=== PATIENT | female | born 1945 | race Caucasian/White ===

== ENCOUNTER → 2017-03-14 | Outpatient (CLI) | payer MEDICARE, BC | LOC: GMAB 16:44 | PROVIDERS: ATTEND Family Medicine | DX: R30.0 Dysuria (principal) ==

== ENCOUNTER → 2017-03-23 | Outpatient (CLI) | payer MEDICARE, BC | END | disposition home or self-care (01) | LOC: GMAB 10:23 | PROVIDERS: ATTEND Family Medicine | DX: I10 Essential (primary) hypertension (principal) ==

== ENCOUNTER → 2017-05-05 | Outpatient (CLI) | payer MEDICARE, BC ==
--- NOTE | 2017-05-06 12:53 | MAM ---
EXAM DESCRIPTION: 3D Screening BILATERAL : Digital Mammography. CLINICAL HISTORY: 72 years Female SCREENING . No complaints. No family history of breast cancer. Hysterectomy. No HRT. COMPARISON: 2-D digital screening bilateral study 05/31/2011.. No prior reports available. TECHNIQUE: Bilateral CC and MLO projection full-field images, 3-D tomosynthesis digital mammographic technique. Also bilateral synthesized CC/ MLO full-field images. CAD not utilized. FINDINGS: The breast parenchymal density pattern is: Scattered areas of fibroglandular density. No skin thickening or nipple retraction bilateral solitary microcalcifications. Bilateral intramammary lymph nodes. Bilateral vascular calcifications. Focal asymmetry at the 1200-12:30 clock position of the posterior third of the left breast, approximately 9 cm from the nipple. Not well seen on the prior study. Greater density than the surrounding soft tissues, similar to fibroglandular tissues. Not associated with microcalcifications. No focal, stellate mass or density, focal asymmetry , and no suspicious microcalcifications right breast. Stable mammograms compared to prior study, taking into account differences in mammographic technique IMPRESSION: BI-RADS CATEGORY: 0 - INCOMPLETE- Need additional imaging evaluation. FOLLOW-UP: Recall for additional imaging: Digital 3-D tomosynthesis left breast LM full-field image. Followed by targeted left breast ultrasound region of interest.. Written communication concerning the IMPRESSION and Follow-up, will be mailed to the patient and referring health care provider. Electronically signed by: Estevan Phillips MD 05/06/2017 12:51 PM AUTOMOTIVE SERVICE TECHNICIAN
== END | disposition home or self-care (01) ==
LOC: MAMMO 10:14
PROVIDERS: ATTEND Family Medicine
DX: Z12.31 Encounter for screening mammogram for malignant neoplasm of breast (principal)
CPT/HCPCS: 77063; G0202

== ENCOUNTER → 2017-05-18 | Outpatient (CLI) | payer MEDICARE, BC ==
--- NOTE | 2017-05-19 16:08 | MAM ---
EXAM DESCRIPTION: Diagnostic Mammo,Left CLINICAL HISTORY: 72 yearsFemaleABNORMAL MAMMO. No complaints. No family history of breast cancer. Focal asymmetry 12 8192-8235 clock position posterior third left breast. COMPARISON: 3-D digital screening bilateral tomosynthesis study 05/05/2017. Targeted left breast ultrasound following this examination. TECHNIQUE: 2-D digital left breast LM image. CAD was utilized. FINDINGS: Small oval-shaped mass density with central radiolucency at the 200 clock position of the left breast, approximately 8.8 cm from the nipple. Well-circumscribed borders. Dimensions approximately 5.0 x 3.6 mm. More dense than the surrounding fatty tissues. Ductal calcifications, solitary microcalcifications, and vascular calcifications left breast. ULTRASOUND: Scanning of the upper left breast, posterior third. Oval-shaped well-defined hypoechoic object at the 1200 clock position of the left breast, 9 cm from the nipple. Dimensions are 2.6 x 1.7 x 4.3 mm. Non-vascular. Most likely a lymph node. No other discrete solid mass. No cyst. No parenchymal edema or large calcifications. No skin thickening. IMPRESSION: BI-RADS CATEGORY: 2 - BENIGN FINDINGS. FOLLOW UP: Return to routine digital bilateral screening, one year interval from April 2017. The FINDINGS and follow-up were discussed in person with the patient. Written communication explaining the IMPRESSION and followup will be mailed to the patient and referring care provider. According to the [employer], yearly mammograms are recommended starting at age 40 and continuing as long as a woman is in good health. Any breast change noted on a breast self-exam should be reported promptly to the patient's healthcare provider. Breast MRI is recommended for women with an approximately 20-25% or greater lifetime risk of breast cancer, including women with a strong family history of breast or ovarian cancer and women who have been treated for Hodgkin's disease. A negative mammographic report should not delay tissue diagnosis in patients with significant clinical history or physical findings. Extremely dense breast tissue limits the sensitivity of digital mammography. Electronically signed by: Estevan Phillips MD 05/19/2017 4:07 PM [employer]ELTER [employer]PER[employer]
--- NOTE | 2017-05-19 16:09 | US ---
EXAM DESCRIPTION: Breast,Left: Ultrasound CLINICAL HISTORY: 72 yearsFemaleABNORMAL MAMMO COMPARISON: Digital 2-D diagnostic mammogram left breast on the same visit. 3-D screening bilateral study 05/05/2017. TECHNIQUE: Transcutaneous scanning of the posterior left breast utilizing two-dimensional and Doppler modes. Scanning performed by the director of materials only. FINDINGS: Scanning of the upper left breast, posterior third. Oval-shaped well-defined hypoechoic object at the 1200 clock position of the left breast, 9 cm from the nipple. Dimensions are 2.6 x 1.7 x 4.3 mm. Non-vascular. Most likely a lymph node. No other discrete solid mass. No cyst. No parenchymal edema or large calcifications. No skin thickening. IMPRESSION: 1. Bi-Rads Category 2: Benign. 2. Please refer to digital left breast mammographic examination on the same visit. The FINDINGS and the follow-up plan were reviewed in person with the patient after the examination. Written communication explaining the IMPRESSION and follow-up will be mailed to the patient and referring care provider. Electronically signed by: Estevan Phillips MD 05/19/2017 4:07 PM [facility]
== END | disposition home or self-care (01) ==
LOC: US 14:22
PROVIDERS: ATTEND Family Medicine
DX: R92.8 Other abnormal and inconclusive findings on diagnostic imaging of breast (principal)
CPT/HCPCS: 76641; 77065; G0206

== ENCOUNTER → 2017-11-16 | Outpatient (CLI) | payer MEDICARE, BC ==
--- NOTE | 2017-11-16 15:46 | RAD ---
EXAM DESCRIPTION: Pelvis CLINICAL HISTORY: 72 years Female, PAIN IN RIGHT HIP COMPARISON: None. TECHNIQUE: AP radiograph of the pelvis was performed. FINDINGS: The pelvic ring appears grossly intact on this single AP radiograph. No acute fracture or dislocation. Bilateral sacroiliac joints appear normal. Mild degenerative changes are identified in the bilateral hip joints. Enthesopathy changes are noted along the greater trochanter. The visualized lumbo-sacral spine demonstrates mild degenerative changes. IMPRESSION: Mild bilateral hip osteoarthritis. Electronically signed by: Adela Parsons MD 11/16/2017 3:45 PM CDT
--- NOTE | 2017-11-16 15:46 | RAD ---
EXAM DESCRIPTION: Knee,Right Complete CLINICAL HISTORY: 72 years Female, PAIN IN RIGHT KNEE TECHNIQUE: 4 views of the right knee were performed. COMPARISON: None available. FINDINGS: The visualized bones appear well mineralized. No acute fracture or dislocation. No evidence of suprapatellar joint effusion. The soft tissues appear grossly unremarkable. Tricompartmental osteoarthritis, worse in the medial tibiofemoral compartment. 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 Electronically signed by: Adela Parsons MD 11/16/2017 3:44 PM CDT
== END ==
LOC: RAD 08:19
PROVIDERS: ATTEND Orthopaedic Surgery
DX: M25.561 Pain in right knee (principal); M17.11 Unilateral primary osteoarthritis, right knee; M16.0 Bilateral primary osteoarthritis of hip; M25.551 Pain in right hip

== ENCOUNTER 2018-02-13 05:47 | Day surgery (SDC) | payer MEDICARE ==
[2018-02-13] MEDS ORDERED: PROPARACAINE 0.5% OPHTH SOL 15 ML BTTL ONE (11:26)
[2018-02-13] MEDS ORDERED: TROP 1%/CYCLOPEN 1%/PHENYL 2% DROPS ONE (11:26)
[2018-02-13] MEDS ORDERED: TOBRAMYCIN SULF 0.3 % OPHT SOL 1 DROP OPHTH ONE (11:30)
== END 2018-02-13 14:15 | disposition home or self-care (01) ==
LOC: AMB 05:47
PROVIDERS: ATTEND Ophthalmology
DX: H26.492 Other secondary cataract, left eye (principal); I10 Essential (primary) hypertension

== ENCOUNTER → 2018-04-06 | Outpatient (CLI) | payer MEDICARE ==
--- NOTE | 2018-04-06 15:52 | RAD ---
EXAM DESCRIPTION: Knee,Left Complete CLINICAL HISTORY: KNEE PAIN COMPARISON: None. TECHNIQUE: 4 views left FINDINGS: Marked loss of medial joint space is observed. Medial tibial osteophyte formation is observed. Lateral tibial and femoral osteophyte formation is observed. Patellofemoral joint arthritis is observed. A small joint effusion is seen. No fracture or dislocation is seen. IMPRESSION: Tricompartmental joint degenerative changes are observed most pronounced in the medial joint compartment. Electronically signed by: Bill Arce MD 04/06/2018 3:50 PM CDT
== END ==
LOC: RAD 08:56
PROVIDERS: ATTEND Orthopaedic Surgery
DX: M25.562 Pain in left knee (principal)

== ENCOUNTER → 2018-04-07 | Outpatient (CLI) | payer MEDICARE | LOC: RESP 10:07 | PROVIDERS: ATTEND Orthopaedic Surgery | DX: Z01.818 Encounter for other preprocedural examination (principal) ==

== ENCOUNTER → 2018-04-11 | Outpatient (CLI) | payer MEDICARE ==
--- NOTE | 2018-04-11 13:12 | RAD ---
EXAM DESCRIPTION: Chest,2 Views CLINICAL HISTORY: ESSENTIAL HYPERTENSION COMPARISON: Previous chest x-ray July 25, 2017 TECHNIQUE: PA/lateral FINDINGS: There is no acute appearing cardiac or pulmonary abnormality. Heart size is prominent with normal pulmonary vascularity. No pleural effusion or pneumothorax. Lungs are clear with no consolidating infiltrate. Lateral view shows intact sternum and spurring in the mid and lower T-spine. IMPRESSION: No acute process is identified in the chest. Electronically signed by: Joey Aly MD 04/11/2018 1:11 PM CDT
== END ==
LOC: LAB.O 11:10
PROVIDERS: ATTEND Family Medicine
DX: I10 Essential (primary) hypertension (principal)

== ENCOUNTER 2018-04-19 05:43 | Inpatient (IN) | payer MEDICARE ==
--- NOTE | 2018-04-13 11:45 | HP ---
CHIEF COMPLAINT: Left knee pain. HISTORY OF PRESENT ILLNESS: Karla is a 72-year-old female with a history of rheumatoid arthritis. She has had pain in the left knee going on for years. It has gotten progressively worse and now affects her daily function. Because of the adverse effect on her daily function, she has requested operative intervention. After discussing the risks, benefits and alternatives to operative intervention, the patient has given informed consent for total knee arthroplasty. PAST SURGICAL HISTORY: 1. Abductor musculature repair. MEDICATIONS: 1. Losartan. 2. Meloxicam. 3. Hydrochlorothiazide. 4. Norvasc. 5. Plaquenil. ALLERGIES: SULFA. CODE STATUS: DNR. IMMUNIZATIONS: Up to date. FAMILY HISTORY: None pertinent to today's complaint. SOCIAL HISTORY: The patient does not drink, smoke or use any illicit drugs. REVIEW OF SYSTEMS: Negative except as indicated in the History of Present Illness. PHYSICAL EXAMINATION: VITAL SIGNS: Blood pressure 131/66. Pulse 79. Height 5'5". Weight 195 pounds. MENTAL STATUS: The patient is awake, alert, and is able to give a good history and participate in the physical. The patient is oriented to person, place and time. SKIN: Normal tone and turgor. HEENT: Normocephalic, atraumatic. Pupils equal, round and reactive. Mucosal membranes are moist. NECK: Normal range of motion. No thyromegaly, no lymphadenopathy. CHEST: Normal respiratory excursion. CARDIAC: Regular rate and rhythm. No murmurs, rubs or gallops. MUSCULOSKELETAL: Bilateral upper extremities show full active range of motion without pain. She has intact sensation throughout and they are warm and well perfused. There is no deformity and no crepitus. She has no malalignment of the upper extremities. The right lower extremity shows pain with range of motion of the knee, but no significant pain with range of motion of the hip. She has no malalignment. Sensation is intact. It is warm and well perfused. She has no varus/valgus or anterior/posterior at the knee. The left lower extremity shows retained range of motion in the hip. Knee range of motion is from 5 to about 110 degrees. There is no varus/valgus or anterior/posterior laxity. She is extremely tender with patella mobilization as well as palpation around the joint-line. She has mild to moderate effusion today. IMAGING: X-rays show severe arthritis. ASSESSMENT: 1. Rheumatoid arthritis. PLAN: The plan at this point is for total knee arthroplasty. We have discussed the risks, benefits, and alternatives to that and the patient has given informed consent. [facility][id number] [facility]
[~2018-04-19 05:43] MED LIST: SCOPOLAMINE PATCH 1.5MG 1 EA TD ONE
[2018-04-19] MEDS ORDERED: SODIUM CHL 0.9% 100ML MINI-BAG 100 ML IVPB ONE (05:48)
[2018-04-19] MEDS ORDERED: TRANEXAMIC ACID 1,000 MG/10 ML VIAL ONE ×2 (05:48→05:51)
[2018-04-19] MEDS ORDERED: LACTATED RINGERS 1,000 ML ONE ×2 (05:48→10:45)
[2018-04-19] MEDS ORDERED: VANCOMYCIN HCL INJ 1,000 MG VIAL IVPB ONE ×2 (05:49→17:31)
[2018-04-19] MEDS ORDERED: ceFAZolin SODIUM 1 GM VIAL ONE ×2 (05:49→06:26)
[2018-04-19] MEDS ORDERED: SODIUM CHLORIDE 0.9% 250ML 250 ML ONE ×2 (05:50→17:31)
[2018-04-19] MEDS ORDERED: SODIUM CHLORIDE 0.9% 100ML 100 ML IVPB ONE (05:50)
[2018-04-19] MEDS ORDERED: MIDAZOLAM INJ 5 MG/5 ML VIAL ONE (06:24)
[2018-04-19] MEDS ORDERED: MORPHINE SULF *EPIDURAL* 1 MG/ML VIAL ONE (06:24)
[2018-04-19] MEDS ORDERED: ACETAMINOPHEN IV 1000MG 100 ML ONE (06:24)
[2018-04-19] MEDS ORDERED: fentaNYL CITRATE INJ 50 MCG/ML AMP ONE (06:24)
[2018-04-19] MEDS ORDERED: KETAMINE HCL 100 MG/ML VIAL ONE (06:25)
[2018-04-19] MEDS ORDERED: DEXAMETHASONE INJ 10 MG/ML VIAL ONE (07:00)
[2018-04-19] MEDS ORDERED: raNITIdine HCL INJ 25 MG/ML VIAL ONE (07:00)
[2018-04-19] MEDS ORDERED: SODIUM CHLORIDE 0.9% 50 ML VIAL ONE (07:00)
[2018-04-19] MEDS ORDERED: LIDOCAINE 1% 10 ML VIAL INJ ONE (07:00)
[2018-04-19] MEDS ORDERED: PROPOFOL 200 MG/20 ML VIAL IV ONE (07:00)
[2018-04-19] MEDS ORDERED: METOCLOPRAMIDE HCL INJ 10 MG/2 ML VIAL ONE (07:00)
[2018-04-19] MEDS: BUPIVACAINE LIPOSOME 13.3 MG/ML VIAL INJ ONE ×2 (07:53→09:01)
[2018-04-19] MEDS: ceFAZolin SODIUM 1 GM VIAL ONE ×2 (07:53→09:01)
[2018-04-19] MEDS: BUPIVACAINE 0.5% 30 ML VIAL INJ ONE ×2 (07:53→09:00)
[2018-04-19] MEDS: VANCOMYCIN HCL INJ 1,000 MG VIAL IVPB ONE ×2 (07:54→09:01)
[2018-04-19] MEDS ORDERED: BUPIVACAINE LIPOSOME 13.3 MG/ML VIAL INJ ONE (08:22)
[2018-04-19] MEDS ORDERED: traMADol HCL 50 MG TAB PO PRN (09:26)
[2018-04-19] MEDS ORDERED: SODIUM CHLORIDE 0.9% (FLUSH) 10 ML SYG IV PRN (09:26)
[2018-04-19] MEDS ORDERED: ONDANSETRON INJ 4 MG/2 ML VIAL IV PRN (09:26)
[2018-04-19] MEDS ORDERED: TRANEXAMIC ACID INJ 1,000 MG in SODIUM CHLORIDE 0.9% 100ML 100 ML IVPB ONE (09:26)
[2018-04-19] MEDS ORDERED: MORPHINE SULFATE INJ 10 MG/ML VIAL IV PRN (09:26)
[2018-04-19] MEDS ORDERED: PROMETHAZINE HCL INJ 25 MG in SODIUM CHLORIDE 0.9% 50ML 50 ML IVPB PRN (09:26)
[2018-04-19] MEDS ORDERED: ACETAMINOPHEN 325 MG TAB PO PRN (09:26)
[2018-04-19] MEDS ORDERED: BISACODYL SUPPOSITORY 10 MG PR PRN (09:26)
[2018-04-19] MEDS ORDERED: BENZOCAINE-MENTH LOZ (CEPACOL) 1 EA LOZ MT PRN (09:26)
[2018-04-19] MEDS ORDERED: ACETAMINOPHEN 500 MG TAB PO PRN (09:26)
[2018-04-19] MEDS ORDERED: NALOXONE HCL INJ 0.4 MG/ML VIAL IV PRN (09:26)
[2018-04-19] MEDS ORDERED: MAGNESIUM HYDROXIDE 30 ML UD PO PRN (09:26)
[2018-04-19] MEDS ORDERED: DEX 5% W/NACL 0.45% 1000ML 1,000 ML IVS PRN (09:26)
[2018-04-19] MEDS ORDERED: ALUMINUM & MAGNESIUM HYDROXIDE 30 ML UD PO PRN (09:26)
[2018-04-19] MEDS ORDERED: ZOLPIDEM TARTRATE 5 MG TAB PO PRN (09:26)
[2018-04-19] MEDS ORDERED: PROMETHAZINE HCL INJ 12.5 MG in SODIUM CHLORIDE 0.9% 50ML 50 ML IVPB PRN (09:26)
[2018-04-19] MEDS ORDERED: MORPHINE SULFATE INJ 10 MG/ML VIAL IM PRN (09:26)
[2018-04-19] MEDS ORDERED: TEMAZEPAM 15 MG CAP PO PRN (09:26)
[2018-04-19] MEDS ORDERED: MORPHINE PCA 1 MG/ML 100 ML BAG IVPB SCH (09:30)
--- NOTE | 2018-04-19 11:00 | OP ---
DATE OF PROCEDURE: 04/19/18 PREOPERATIVE DIAGNOSIS: 1. Rheumatoid arthritis. POSTOPERATIVE DIAGNOSIS: 1. Rheumatoid arthritis. PROCEDURE: 1. Total knee arthroplasty. SURGEON: Darrell Gonzalez MD. SOFTWARE ENGINEER DEVELOPER: Estevan Barlow CST, SA-C. ANESTHESIA: General anesthesia. COMPLICATIONS: None. FINDINGS: Severe arthritis of the knee. INDICATION: Ms. Diaz has a long history of severe knee pain which has been refractory to conservative measures. She has had no relief with injections, anti-inflammatories or her rheumatoid regimen. Because of her failure of conservative measures, she has requested operative intervention. After discussing the risks, benefits and alternatives to operative intervention, the patient has given informed consent for total knee arthroplasty. PROCEDURE: The patient was brought to the Operating Room and placed in supine position. General anesthesia was induced and the patient's leg was sterilely prepped and draped. A midline incision with standard medial parapatellar approach was used. Following a capsulotomy, an intramedullary guide was used to make the anterior, posterior, and chamfer cuts. The tibia was subluxed and an intramedullary guide was used to make the proximal tibial cut. The tibia was reduced and the distal femur was exposed. A box cut was made to accommodate a posterior stabilized prosthesis. The patella was everted and approximately 9 mm was resected. The patella button was applied and trial components were placed. The knee was taken through a range of motion. The knee was stable with good patellar tracking. Following that, the trial components were removed and the bony surfaces were thoroughly irrigated. The surfaces were dried and the components were cemented into place. The excess cement was removed and the remaining cement was allowed to cure. The knee was taken through a range of motion and patellar tracking was found to be anatomic. The wound was then very thoroughly irrigated and closure was performed with reapproximation of the capsulotomy. The skin was closed with a combination of running and interrupted subcuticular stitches. Sterile dressings were placed. The patient was awoken from anesthesia and taken to Recovery. POSTOPERATIVE PLAN: The patient will be weight-bearing as tolerated on postoperative day 1. #[id number] [facility]
--- NOTE | 2018-04-19 12:29 | RAD ---
Frontal and lateral views of the left knee. Indication: TKA Impression: Postsurgical changes of left total knee arthroplasty and patellar resurfacing noted with associated postsurgical changes of the soft tissues. No complicating features identified. Electronically signed by: Ollie Cornejo MD 04/19/2018 12:28 PM CDT
[2018-04-19] MEDS ORDERED: ceFAZolin SODIUM 2 GRAMS PREMI 50 ML IVPB ONE ×2 (15:19→20:15)
[2018-04-19] MEDS: ceFAZolin SODIUM 2 GRAMS PREMI 2 GM in PREMIX BAG 1 BAG IVPB SCH (15:28)
[2018-04-19] MEDS: IV SET AND CAP CHANGE INJ INJ SCH (17:36)
[2018-04-19] MEDS: VANCOMYCIN HCL INJ 1,000 MG in SODIUM CHLORIDE 0.9% 250ML 250 ML IVPB SCH (17:37)
[2018-04-19] MEDS ORDERED: diphenhydrAMINE HCL 50 MG/ML VIAL IV PRN (19:53)
[2018-04-19] MEDS ORDERED: ENOXAPARIN SODIUM 30 MG/0.3 ML SYG SUBCU ONE (20:15)
[2018-04-19] MEDS: DOCUSATE CALCIUM 240 MG CAP PO SCH (20:30)
[2018-04-19] MEDS: ENOXAPARIN SODIUM 30 MG/0.3 ML SYG SUBCU SCH (23:11)
[2018-04-20] MEDS: ceFAZolin SODIUM 2 GRAMS PREMI 2 GM in PREMIX BAG 1 BAG IVPB SCH ×2 (00:30→07:23)
[2018-04-20] MEDS ORDERED: SODIUM CHLORIDE 0.9% 250ML 250 ML ONE (04:43)
[2018-04-20] MEDS ORDERED: VANCOMYCIN HCL INJ 1,000 MG VIAL IVPB ONE (04:43)
[2018-04-20] MEDS: VANCOMYCIN HCL INJ 1,000 MG in SODIUM CHLORIDE 0.9% 250ML 250 ML IVPB SCH (05:26)
[2018-04-20] MEDS ORDERED: ceFAZolin SODIUM 2 GRAMS PREMI 50 ML IVPB ONE (07:08)
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
[2018-04-20] MEDS: LOSARTAN POTASSIUM 100 MG TAB PO SCH (08:27)
[2018-04-20] MEDS: MAGNESIUM OXIDE 400 MG TAB PO SCH (08:27)
[2018-04-20] MEDS: HYDROcodone 5MG/APAP 325MG 1 EA TAB PO PRN (08:27)
--- NOTE | 2018-04-20 08:41 | PN ---
DATE: 04/19/18 POSTOPERATIVE CHECK SUBJECTIVE: Ms. Diaz is doing really well and her pain is well controlled. OBJECTIVE: Afebrile. Vital signs stable. Dressing is clean, dry and intact. ASSESSMENT: Status post total knee arthroplasty. PLAN: The plan at this point is for her to begin weightbearing as tolerated on postoperative day 1. #[id number] [facility]
--- NOTE | 2018-04-20 08:42 | PN ---
DATE: 04/20/18 SUBJECTIVE: She is doing well. The pain is well controlled at this time. OBJECTIVE: Afebrile. Vital signs stable. Dressing is clean, dry and intact. ASSESSMENT: Status post total knee arthroplasty. PLAN: The plan at this point is to begin weightbearing as tolerated today. [facility][id number] [facility]
[2018-04-20] MEDS: CYCLOBENZAPRINE HCL 10 MG TAB PO PRN ×2 (08:46→20:22)
[2018-04-20] MEDS: amLODIPine BESYLATE 5 MG TAB PO SCH (08:55)
[2018-04-20] MEDS: hydroCHLOROthiazide 25 MG TAB PO SCH (08:55)
[2018-04-20] MEDS: ENOXAPARIN SODIUM 30 MG/0.3 ML SYG SUBCU SCH ×2 (10:09→23:19)
[2018-04-20] MEDS ORDERED: diphenhydrAMINE HCL 12.5 MG/5 ML UD PO PRN (12:21)
--- NOTE | 2018-04-20 13:35 | PN ---
SUPERVISING PHYSICIAN: Amadou Hart MD DATE: 04/20/18 SUBJECTIVE: The patient is sitting up in her chair in her room. She is somewhat sleepy, but she answers questions appropriately. She has some complaints of some mild itching, but otherwise, she has no complaints of nausea , vomiting, diarrhea, constipation, shortness of breath or chest pain. She feels like her physical therapy is going well at this time. OBJECTIVE: VITAL SIGNS: T-max 24 hours 100. Pulse 76. Blood pressure 136/70. Respiratory rate 18. O2 saturation 93% on room air. RESPIRATORY: Essentially clear to auscultation bilaterally. CARDIAC: Regular rate and rhythm. GASTROINTESTINAL: Abdomen is soft, nondistended, nontender. Bowel sounds are positive. EXTREMITIES: She has a dressing with an Atul bandage to her left knee. It is dry and intact. Bilateral pedal pulses are palpable at +1. LABORATORY: Hemoglobin 10.4, hematocrit 30.5. All other labs and films have been reviewed via the EMR. ASSESSMENT: 1. Rheumatoid arthritis affecting the left knee status post left total knee arthroplasty performed by Dr. Darrell Gonzalez, orthopedic surgeon, postoperative day #1. 2. Hypertension, stable. 3. Rheumatoid arthritis. PLAN: We will continue present supportive care. Orthopedic issues will be per Dr. Darrell Gonzalez, orthopedic surgeon. She will continue with her physical therapy for strengthening and conditioning. She gets Benadryl 25 mg at night for sleep, but I have added an additional 12.5 mg p.o. q.4h. p.r.n. for itching. Most likely we will discharge Tuesday and she will go to [facility]. Her temperature is up some and I have encouraged her to use her incentive spirometry as well as to continue with good pulmonary hygiene. We will continue to monitor the patient closely and follow as needed. #[id number] [facility]
[2018-04-20] MEDS: DOCUSATE CALCIUM 240 MG CAP PO SCH (20:22)
[2018-04-21] MEDS: CYCLOBENZAPRINE HCL 10 MG TAB PO PRN ×2 (03:12→20:25)
[2018-04-21] MEDS: HYDROcodone 5MG/APAP 325MG 1 EA TAB PO PRN ×2 (06:16→09:52)
[2018-04-21] MEDS ORDERED: ceFAZolin SODIUM 2 GRAMS PREMI 50 ML IVPB ONE (07:32)
--- NOTE | 2018-04-21 07:53 | PN ---
DATE: 04/21/18 SUBJECTIVE: Ms. Diaz is doing well this morning. She is comfortably and pain is well controlled. OBJECTIVE: Afebrile. Vital signs stable. Wound is clean. There are no signs or symptoms of infection. ASSESSMENT: Status post total knee arthroplasty. PLAN: The plan at this point is for her to continue with physical therapy. She will likely be discharged in the next one to two days. [facility][id number] [facility]
[2018-04-21] MEDS: MAGNESIUM OXIDE 400 MG TAB PO SCH (08:01)
[2018-04-21] MEDS: LOSARTAN POTASSIUM 100 MG TAB PO SCH (08:01)
[2018-04-21] MEDS: hydroCHLOROthiazide 25 MG TAB PO SCH (08:01)
[2018-04-21] MEDS: SODIUM CHLORIDE 0.9% (FLUSH) 10 ML SYG IV SCH ×2 (08:02→20:25)
[2018-04-21] MEDS: amLODIPine BESYLATE 5 MG TAB PO SCH (08:02)
[2018-04-21] MEDS ORDERED: HYDROcodone 5MG/APAP 325MG 1 EA TAB PO ONE (11:12)
[2018-04-21] MEDS: ENOXAPARIN SODIUM 30 MG/0.3 ML SYG SUBCU SCH ×2 (11:29→23:15)
[2018-04-21] MEDS: HYDROcodone 10MG/APAP 325MG 1 EA TAB PO PRN ×2 (14:25→18:25)
--- NOTE | 2018-04-21 14:35 | PN ---
SUPERVISING PHYSICIAN: Amadou Hart MD DATE: 04/21/18 SUBJECTIVE: The patient continues to have a fairly high degree of pain requiring initiation of higher dose of [place]. She has had no nausea or vomiting or any shortness of breath. OBJECTIVE: VITAL SIGNS: Temperature 98.5. Pulse 74. Blood pressure 166/75. Respirations 16. Saturation 97% on room air. I&Os show positive balance of 340 with 1340 in, 1000 out. Weight 77.0 kg. GENERAL: The patient is dressed and in bed. She appears to be in no acute distress although she notes she is having a fair amount of pain while on the CPM. She is alert and oriented. CHEST: Lungs clear to auscultation bilaterally. HEART: Regular rate and rhythm. ABDOMEN: Soft, nontender. Positive bowel sounds. EXTREMITIES: No cyanosis, clubbing or edema. Left leg is over the CPM. The knee has a clean, dry dressing with no signs of infection. Distal pulses are strong. Brisk capillary refill. NEUROLOGIC: Alert and oriented times three. LABORATORY: No additional laboratory to report. RADIOLOGY: No additional radiographic studies. ASSESSMENT: 1. Rheumatoid arthritis affecting the left knee status post left total knee arthroplasty performed by Dr. Darrell Gonzalez, orthopedic surgeon, postoperative day #2. 2. Hypertension, stable. 3. Rheumatoid arthritis, chronic. PLAN: We will continue to follow the patient as she progresses through her physical therapy. She is encouraged to do deep breathing exercises and good pulmonary hygiene. I did discussed with her her pain and 5 [place] is not controlling very well. Therefore, we will increase her to 10/325 and monitor closely. Once discharged, she will [facility] Plan for discharge will be either tomorr or Tuesday. Until discharge, we will continue to monitor the patient closely and treat as needed. #[id number] [facility]
[2018-04-21] MEDS: DOCUSATE CALCIUM 240 MG CAP PO SCH (20:25)
[2018-04-22] MEDS: HYDROcodone 10MG/APAP 325MG 1 EA TAB PO PRN ×4 (00:03→17:53)
[2018-04-22] MEDS: MAGNESIUM OXIDE 400 MG TAB PO SCH (08:42)
[2018-04-22] MEDS: LOSARTAN POTASSIUM 100 MG TAB PO SCH (08:42)
[2018-04-22] MEDS: amLODIPine BESYLATE 5 MG TAB PO SCH (08:42)
[2018-04-22] MEDS: hydroCHLOROthiazide 25 MG TAB PO SCH (08:42)
[2018-04-22] MEDS: SODIUM CHLORIDE 0.9% (FLUSH) 10 ML SYG IV SCH ×2 (08:43→20:33)
[2018-04-22] MEDS: IV SET AND CAP CHANGE INJ INJ SCH (08:49)
[2018-04-22] MEDS: ENOXAPARIN SODIUM 30 MG/0.3 ML SYG SUBCU SCH ×2 (10:28→23:12)
[2018-04-22] MEDS: DOCUSATE CALCIUM 240 MG CAP PO SCH (20:33)
[2018-04-22] MEDS ORDERED: MAGNESIUM HYDROXIDE 30 ML UD PO ONE (21:00)
[2018-04-22] MEDS ORDERED: BISACODYL SUPPOSITORY 10 MG PR ONE (21:00)
[2018-04-23] MEDS: HYDROcodone 10MG/APAP 325MG 1 EA TAB PO PRN ×2 (04:19→08:39)
[2018-04-23] MEDS: MAGNESIUM OXIDE 400 MG TAB PO SCH (08:39)
[2018-04-23] MEDS: hydroCHLOROthiazide 25 MG TAB PO SCH (08:40)
[2018-04-23] MEDS: SODIUM CHLORIDE 0.9% (FLUSH) 10 ML SYG IV SCH (08:40)
[2018-04-23] MEDS: LOSARTAN POTASSIUM 100 MG TAB PO SCH (08:40)
[2018-04-23] MEDS: amLODIPine BESYLATE 5 MG TAB PO SCH (08:40)
[2018-04-23] MEDS ORDERED: CALCIUM CARBONATE (ANTACID) 500 MG CHEWABLE TAB PO PRN (10:16)
[2018-04-23] MEDS: ENOXAPARIN SODIUM 30 MG/0.3 ML SYG SUBCU SCH (10:35)
[2018-04-23 13:31] VITALS: BP 128/80; TEMP 98.6; O2SAT 97
--- NOTE | 2018-04-24 11:33 | PN ---
SUPERVISING PHYSICIAN: Amadou Hart MD DATE: 04/22/18 SUBJECTIVE: The patient continues to need quite a bit of assistance to get from the bed to a chair. Other than that, she does well with her physical therapy. She has good control of pain with [place], but continues to have a significant amount of soreness. She has had no other complaints. OBJECTIVE: VITAL SIGNS: Temperature 98.3. Pulse 92. Blood pressure 131/73. Respirations 16. Saturation 95% on room air. I&Os show good balance at negative 990 with 1110 in, 2100 out. She has not yet had a bowel movement. Weight 87.0 kg. GENERAL: The patient is resting in bed having just finished using CPM. She is alert without any notable acute distress. CHEST: Lungs clear to auscultation. HEART: Regular rate and rhythm. ABDOMEN: Soft, nontender. Positive bowel sounds. EXTREMITIES: Left knee has dressing in place which his clean and dry without any signs of infection. Distal pulses are strong. Brisk capillary refill. NEUROLOGIC: Alert and oriented times three. LABORATORY: No laboratory studies to review. RADIOLOGY: No radiographic studies to review. ASSESSMENT: 1. Rheumatoid arthritis affecting the left knee status post left total knee arthroplasty performed by Dr. Darrell Gonzalez, orthopedic surgeon, postoperative day #3. 2. Hypertension, stable. 3. Rheumatoid arthritis, chronic. PLAN: We will continue to follow the patient as she progresses through her physical therapy. After final physical therapy, plan is to discharge tomorrow to continue with [facility] physical therapy. The patient still has a little bit of difficulty transferring from bed to a chair, but she does well once she starts. She has all her equipment at home. She will be discharged on Xarelto and pain management. Until discharge, we will continue to monitor the patient and treat as needed. #[id number] [facility]
--- NOTE | 2018-04-24 14:20 | DS ---
SUPERVISING PHYSICIAN: Shiva Hart MD ADMISSION DIAGNOSES: 1. Rheumatoid arthritis affecting the left knee status post left total knee arthroplasty performed by Dr. Darrell Gonzalez, orthopedic surgeon. 2. Hypertension. 3. Rheumatoid arthritis. DISCHARGE DIAGNOSES: 1. Rheumatoid arthritis affecting the left knee with patient having elective left total knee arthroplasty, postoperative day #4, performed by Dr. Darrell Gonzalez, orthopedic surgeon. 2. Hypertension, stable. 3. Rheumatoid arthritis, chronic. REASON FOR HOSPITALIZATION: Ms. Diaz is a 72-year-old female patient who has a long history of rheumatoid arthritis. She has had pain in her left knee for multiple years. It has progressively worsened to the point where she has had problems with her activities of daily living. She has tried multiple efforts at conservative treatments but the pain increased. Therefore, she requested elective operative intervention by Dr. Darrell Gonzalez, orthopedic surgeon, for left total knee arthroplasty, She was admitted on 04/19/18 for a elective left total knee arthroplasty. She had no intraoperative complications and was followed postoperatively. LABORATORY: Postoperative hemoglobin 10.4 and [id number]. CONSULTATION: Hospitalist consultation, see Alma Rosa Epstein's note for full details. PROCEDURE: Total knee arthroplasty, left, performed by Dr. Darrell Gonzalez. Please see his operative note for details. HOSPITAL COURSE: Ms. Diaz was admitted on 04/19/18 for elective left total knee arthroplasty. She had no intraoperative complications and was followed postoperatively. She advanced through her physical therapy. On day # 3 she was continuing to have some issues with getting out of bed without assistance and didn't feels safe going home until she had continued improvement. Therefore, she states on day #4 on she felt she was well enough to [facility] She had no other complications through her hospitalization stay and remained stable and was discharge on 04/23/18. PHYSICAL EXAMINATION: VITAL SIGNS on discharge: Temperature 98.6, pulse 81, blood pressure 128/80, respirations 16, saturation 97% on room air. GENERAL: The patient was seen and examined. She was alert and oriented and in no acute distress. CHEST: Lungs clear to auscultation. HEART: Regular rate and rhythm. ABDOMEN: Soft, non-tender, positive bowel sounds. EXTREMITIES: Left knee continued with a dressing in place which was clean and dry, no signs of infection. Distal pulses are strong, capillary refill is brisk. NEUROLOGIC: She is alert and oriented x 3. PLAN: Ms. Diaz was discharged on 04/23/[address] Gonzalez scheduled on 05/05 at 9:15 AM. She was to resume her home medications as instructed. She was to advance her diet as tolerated. ACTIVITIES: Increase as per physical therapy as tolerated. Utilize a walker and [facility]. She was to shower with no tub baths. Wound care was per Dr. Gonzalez's instructions printed and provided at discharge. DISCHARGE PRESCRIPTIONS: 1. Flexeril 10 mg every 8 hours as needed, #30, no refills. 2. [place] 10/325, one every 4 hours as needed with prescription written by Dr. Gonzalez. 3. Meloxicam 15 mg daily, previous medication. She was to hold this until she was through with Xarelto and resume on 05/01/18. 4. Xarelto 10 mg daily, #7. DISPOSITION: Patient was discharged to care of her . CONDITION ON DISCHARGE: Stable and improved. #[id number] [facility]
== END 2018-04-23 13:00 | disposition home or self-care (01) | DRG 470 ==
LOC: AMB 05:43 → MS 10:50
PROVIDERS: ADMIT Orthopaedic Surgery; ATTEND Nurse Practitioner Family
PROC: 0SRD0J9 Replacement of Left Knee Joint with Synthetic Substitute, Cemented, Open Approach (ICD-10-PCS; principal; 2018-04-19 06:48)
DX: M06.862 Other specified rheumatoid arthritis, left knee (principal); I10 Essential (primary) hypertension; Z88.2 Allergy status to sulfonamides; Z66 Do not resuscitate

== ENCOUNTER → 2018-06-28 | Outpatient (CLI) | payer MEDICARE ==
[~2018-06-28] MED LIST changes: +IPRATROPIUM/ALBUTEROL 3 ML VIAL NEB ONE; -SCOPOLAMINE PATCH 1.5MG 1 EA TD ONE
== END ==
LOC: RESP 09:54
PROVIDERS: ATTEND Family Medicine
DX: J06.9 Acute upper respiratory infection, unspecified (principal); J45.20 Mild intermittent asthma, uncomplicated
CPT/HCPCS: 94010; 94060; J7620

== ENCOUNTER → 2018-09-27 | Outpatient (CLI) | payer MEDICARE | LOC: LAB.O 17:02 | PROVIDERS: ATTEND Urology | DX: R31.0 Gross hematuria (principal) ==

== ENCOUNTER → 2019-01-15 | Outpatient (CLI) | payer MEDICARE ==
--- NOTE | 2019-01-15 13:30 | RAD ---
PROVIDED CLINICAL HISTORY/REASON FOR EXAM: M25.511,M25.512 Findings: Number of images: Four Location: Right knee No acute fracture or dislocation. Small joint effusion. Tricompartmental osteophytes. Marked medial compartment narrowing with weightbearing. Lateral tibial translation. Mild patellofemoral joint space narrowing. Superior patellar enthesophyte. IMPRESSION: Right knee osteoarthritis with preferential involvement of the medial compartment. Electronically signed by: Leif Rodriguez MD 01/15/2019 1:28 PM CDT
--- NOTE | 2019-01-15 13:31 | RAD ---
EXAM DESCRIPTION: Pelvis CLINICAL HISTORY: 73 yearsFemale, M25.511,M25.512 COMPARISON: None. IMPRESSION: An AP view of the pelvis demonstrates no evidence of acute fracture, dislocation, or destructive osseous lesion. Moderate changes of osteoarthritis in both hips. Mild to moderate degenerative changes in the pubic symphysis and both sacroiliac joints. Electronically signed by: Sd Rollins MD 01/15/2019 1:30 PM CDT
== END ==
LOC: RAD 08:20
PROVIDERS: ATTEND Orthopaedic Surgery
DX: M17.11 Unilateral primary osteoarthritis, right knee (principal); M16.0 Bilateral primary osteoarthritis of hip; M47.898 Other spondylosis, sacral and sacrococcygeal region

== ENCOUNTER → 2019-02-21 | Outpatient (CLI) | payer MEDICARE | LOC: LAB.O 08:15 | PROVIDERS: ATTEND Orthopaedic Surgery | DX: Z01.818 Encounter for other preprocedural examination (principal) ==

== ENCOUNTER 2019-03-21 05:46 | Inpatient (IN) | payer MEDICARE ==
--- NOTE | 2019-03-12 13:35 | HP ---
CHIEF COMPLAINT: Right knee pain. HISTORY OF PRESENT ILLNESS: Dallas is a 73-year-old female with a history of severe pain in the knee. Her pain is secondary to rheumatoid arthritis. She has had total knee arthroplasty on the contralateral side and because of her ongoing symptoms and failure of conservative measures, she has requested operative intervention. After discussing the risks, benefits and alternatives to operative intervention, she has given informed consent. Her pain is at a level that varies between 5 and 8. Aggravating factors include weightbearing and range of motion. Alleviating factors include anti-inflammatory and rest. She has had no trauma ever associated with this. She has failed injections and although she does get mild relief with anti-inflammatories, she is having issues that are affecting her daily living that are causing her difficulty with activities both at tenriism and in her regular day-to-day needs. PAST SURGICAL HISTORY: 1. Hysterectomy. 2. Knee arthroscopy. 3. Total knee arthroplasty. 4. Wrist surgery. 5. Multiple shoulder surgeries. MEDICATIONS: 1. Hydrochlorothiazide. 2. Meloxicam. 3. Losartan. 4. Norvasc. 5. Plaquenil. PAIN CONTRACT: None. ALLERGIES: SULFA. CODE STATUS: DNR. IMMUNIZATIONS: Up to date. SOCIAL HISTORY: The patient does not smoke or use recreational drugs. She does drink on occasion. FAMILY HISTORY: None pertinent to today's complaint. REVIEW OF SYSTEMS: Negative except as indicated in the History of Present Illness. HEENT: The patient reports no symptoms. RESPIRATORY: The patient reports no symptoms. CARDIOVASCULAR: The patient reports no symptoms. GASTROINTESTINAL: The patient reports no symptoms GENITOURINARY: The patient reports no symptoms. MUSCULOSKELETAL: Negative except as noted in History of Present Illness. SKIN: The patient reports no symptoms. NEUROLOGIC: The patient reports no symptoms. PHYSICAL EXAMINATION: VITAL SIGNS: Blood pressure 161/75. Pulse 69. Height 5'5". Weight 196 pounds. MENTAL STATUS: The patient is awake, alert, and is able to give a good history and participate in the physical. The patient is oriented to person, place and time. SKIN: Normal tone and turgor. HEENT: Normocephalic, atraumatic. Pupils equal, round and reactive. Mucosal membranes are moist. NECK: Normal range of motion. No thyromegaly, no lymphadenopathy. CHEST: Normal respiratory excursion. CARDIAC: Regular rate and rhythm. No murmurs, rubs or gallops. MUSCULOSKELETAL: The bilateral upper extremities show full active range of motion without significant pain. She has intact sensation in the upper extremities and they are warm and well perfused. She has no deformity or malalignment. Field Captain strength is equivalent bilaterally. Reflexes are 2+. She has negative belly press. The left lower extremity shows full range of motion in the hip. She has full extension in the knee and flexion to about 115 degrees. She has intact sensation throughout. There is no varus/valgus or anterior/posterior laxity. She has no malalignment or deformity. The right lower extremity shows full range of motion in the hip. She has 5/5 strength in both extremities and reflexes are 2+ and equal bilaterally. She has her knee on the right showing full extension with crepitus throughout her range of motion, but she maintains about 100 degrees of flexion. She refuses any flexion beyond that. The ankles both show full range of motion that is painless. There is no deformity, no swelling and no effusion. RADIOLOGY: My interpretation of the x-rays shows severe arthritis. ASSESSMENT: 1. Rheumatoid arthritis. PLAN: The plan at this point is for total knee arthroplasty. We have discussed the risks, benefits, and alternatives to that and the patient has given informed consent. [facility][id number] [facility]
[2019-03-21] MEDS ORDERED: ceFAZolin SODIUM 1 GM VIAL ONE ×2 (06:35→06:37)
[2019-03-21] MEDS ORDERED: VANCOMYCIN HCL INJ 1,000 MG VIAL IVPB ONE ×5 (06:50→19:18)
[2019-03-21] MEDS ORDERED: SODIUM CHL 0.9% 100ML MINI-BAG 100 ML IVPB ONE (06:56)
[2019-03-21] MEDS ORDERED: TRANEXAMIC ACID 1,000 MG/10 ML VIAL ONE ×2 (06:56→06:57)
[2019-03-21] MEDS ORDERED: SODIUM CHLORIDE 0.9% 100ML 100 ML IVPB ONE (06:57)
[2019-03-21] MEDS ORDERED: SODIUM CHLORIDE 0.9% 250ML 250 ML ONE ×3 (06:57→19:18)
[2019-03-21] MEDS ORDERED: LACTATED RINGERS 1,000 ML ONE (06:57)
[2019-03-21] MEDS ORDERED: LACTATED RINGERS 1,000 ML BAG IV ONE (07:12)
[2019-03-21] MEDS ORDERED: LACTATED RINGERS 1,000 ML IVS ONE (07:12)
[2019-03-21] MEDS ORDERED: TRANEXAMIC ACID 1,000 MG/10 ML VIAL IV ONE (07:22)
[2019-03-21] MEDS ORDERED: KETAMINE HCL 100 MG/ML VIAL ONE (07:44)
[2019-03-21] MEDS ORDERED: fentaNYL CITRATE INJ 50 MCG/ML AMP ONE (07:44)
[2019-03-21] MEDS ORDERED: MORPHINE SULFATE *EPIDURAL* 0.5 MG/ML VIAL ONE (07:44)
[2019-03-21] MEDS ORDERED: MIDAZOLAM INJ 5 MG/5 ML VIAL ONE (07:45)
[2019-03-21] MEDS: BUPIVACAINE 0.5% 30 ML VIAL INJ ONE ×2 (08:48→09:33)
[2019-03-21] MEDS: ceFAZolin SODIUM 1 GM VIAL ONE ×2 (08:49→10:05)
[2019-03-21] MEDS: VANCOMYCIN HCL INJ 1,000 MG VIAL IVPB ONE ×2 (08:49→10:05)
[2019-03-21] MEDS: BUPIVACAINE LIPOSOME 13.3 MG/ML VIAL INJ ONE ×2 (08:49→09:33)
[2019-03-21] MEDS ORDERED: ACETAMINOPHEN IV 1000MG 100 ML ONE (09:00)
[2019-03-21] MEDS ORDERED: LIDOCAINE 1% 10 ML VIAL INJ ONE (10:00)
[2019-03-21] MEDS ORDERED: DEXAMETHASONE INJ 10 MG/ML VIAL IV ONE (10:00)
[2019-03-21] MEDS ORDERED: raNITIdine HCL INJ 25 MG/ML VIAL IV ONE (10:00)
[2019-03-21] MEDS ORDERED: MAGNESIUM SULFATE INJ 1 GM/2 ML VIAL IVPB ONE (10:00)
[2019-03-21] MEDS ORDERED: PROPOFOL 200 MG/20 ML VIAL IV ONE (10:00)
[2019-03-21] MEDS ORDERED: ACETAMINOPHEN 500 MG TAB PO PRN (10:58)
[2019-03-21] MEDS ORDERED: PROMETHAZINE HCL INJ 25 MG in SODIUM CHLORIDE 0.9% 50ML 50 ML IVPB PRN (10:58)
[2019-03-21] MEDS ORDERED: MAGNESIUM HYDROXIDE 30 ML UD PO PRN (10:58)
[2019-03-21] MEDS ORDERED: ONDANSETRON INJ 4 MG/2 ML VIAL IV PRN (10:58)
[2019-03-21] MEDS ORDERED: ZOLPIDEM TARTRATE 5 MG TAB PO PRN (10:58)
[2019-03-21] MEDS ORDERED: SODIUM CHLORIDE 0.9% (FLUSH) 10 ML SYG IV PRN (10:58)
[2019-03-21] MEDS ORDERED: MORPHINE SULFATE INJ 10 MG/ML VIAL IM PRN (10:58)
[2019-03-21] MEDS ORDERED: NALOXONE HCL INJ 0.4 MG/ML VIAL IV PRN (10:58)
[2019-03-21] MEDS ORDERED: TRANEXAMIC ACID INJ 1,000 MG in SODIUM CHLORIDE 0.9% 100ML 100 ML IVPB ONE (10:58)
[2019-03-21] MEDS ORDERED: ACETAMINOPHEN 325 MG TAB PO PRN (10:58)
[2019-03-21] MEDS ORDERED: HYDROcodone 5MG/APAP 325MG 1 EA TAB PO PRN (10:58)
[2019-03-21] MEDS ORDERED: BISACODYL SUPPOSITORY 10 MG PR PRN (10:58)
[2019-03-21] MEDS ORDERED: traMADol HCL 50 MG TAB PO PRN (10:58)
[2019-03-21] MEDS ORDERED: PROMETHAZINE HCL INJ 12.5 MG in SODIUM CHLORIDE 0.9% 50ML 50 ML IVPB PRN (10:58)
[2019-03-21] MEDS ORDERED: TEMAZEPAM 15 MG CAP PO PRN (10:58)
[2019-03-21] MEDS ORDERED: BENZOCAINE-MENTH LOZ (CEPACOL) 1 EA LOZ MT PRN (10:58)
[2019-03-21] MEDS: MORPHINE PCA 1 MG/ML 100 ML BAG IVPB SCH (11:13)
[2019-03-21] MEDS: DEX 5% W/NACL 0.45% 1000ML 1,000 ML IVS PRN (13:24)
[2019-03-21] MEDS ORDERED: ceFAZolin SODIUM 2 GRAMS PREMI 50 ML IVPB ONE ×2 (15:17→19:18)
[2019-03-21] MEDS: ceFAZolin SODIUM 2 GRAMS PREMI 2 GM in PREMIX BAG 1 BAG IVPB SCH ×2 (15:50→23:48)
[2019-03-21] MEDS: IV SET AND CAP CHANGE INJ INJ SCH (15:51)
[2019-03-21] MEDS ORDERED: diphenhydrAMINE HCL 50 MG/ML VIAL ONE (17:14)
[2019-03-21] MEDS: CELECOXIB 100 MG CAP PO SCH (17:19)
[2019-03-21] MEDS: VANCOMYCIN HCL INJ 1,000 MG in SODIUM CHLORIDE 0.9% 250ML 250 ML IVPB SCH (17:19)
[2019-03-21] MEDS ORDERED: SODIUM CHLORIDE 0.9% 50ML 50 ML ONE (17:22)
[2019-03-21] MEDS ORDERED: PROMETHAZINE HCL INJ 25 MG/ML VIAL ONE (17:22)
[2019-03-21] MEDS: diphenhydrAMINE HCL 50 MG/ML VIAL IV PRN (17:30)
[2019-03-21] MEDS ORDERED: ENOXAPARIN SODIUM 30 MG/0.3 ML SYG SUBCU ONE (19:18)
[2019-03-21] MEDS: DOCUSATE CALCIUM 240 MG CAP PO SCH (20:04)
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
[2019-03-21] MEDS: ENOXAPARIN SODIUM 30 MG/0.3 ML SYG SUBCU SCH (22:46)
[2019-03-22] MEDS: diphenhydrAMINE HCL 50 MG/ML VIAL IV PRN (03:33)
[2019-03-22] MEDS: VANCOMYCIN HCL INJ 1,000 MG in SODIUM CHLORIDE 0.9% 250ML 250 ML IVPB SCH (06:14)
[2019-03-22] MEDS ORDERED: ceFAZolin SODIUM 2 GRAMS PREMI 50 ML IVPB ONE (07:14)
[2019-03-22] MEDS: CELECOXIB 100 MG CAP PO SCH ×2 (07:22→16:16)
[2019-03-22] MEDS: ceFAZolin SODIUM 2 GRAMS PREMI 2 GM in PREMIX BAG 1 BAG IVPB SCH (07:33)
[2019-03-22] MEDS: amLODIPine BESYLATE 5 MG TAB PO SCH (08:17)
[2019-03-22] MEDS: MAGNESIUM OXIDE 400 MG TAB PO SCH (08:17)
[2019-03-22] MEDS: LOSARTAN POTASSIUM 100 MG TAB PO SCH (08:18)
--- NOTE | 2019-03-22 08:39 | RAD ---
EXAM: FL LESS THAN 1 HOUR DATE: 03/21/2019 Ordering provider: Darrell Gonzalez CLINICAL INDICATION: RIGHT TKA COMPARISON: None. FINDINGS: 1 intraoperative fluoroscopic image submitted for review. Image demonstrates postsurgical changes of total right knee arthroplasty. Please refer to operative report for details. Fluoroscopy time: 1 second IMPRESSION: Intraoperative fluoroscopy. Electronically signed by: Adam Garcia MD 03/22/2019 8:37 AM CDT
--- NOTE | 2019-03-22 08:40 | OP ---
DATE OF PROCEDURE: 03/21/19 PREOPERATIVE DIAGNOSIS: 1. Rheumatoid arthritis. POSTOPERATIVE DIAGNOSIS: 1. Rheumatoid arthritis. PROCEDURE: 1. Total knee arthroplasty. SURGEON: Darrell Gonzalez MD. PRESCHOOL PARAPROFESSIONAL: Estevan Barlow CST, SA-C. ANESTHESIA: General anesthesia. COMPLICATIONS: None. FINDINGS: Severe arthritis. INDICATION: Ms. Diaz has a history of severe knee pain that has been secondary to her rheumatoid arthritis. She has had extensive conservative measures, however, has failed to gain relief. Because of her ongoing symptoms and dysfunction, she has requested operative intervention. After discussing the risks, benefits and alternatives to that, the patient has given informed consent for total knee arthroplasty. PROCEDURE: The patient was brought to the Operating Room and placed in supine position. General anesthesia was induced and the patient's leg was sterilely prepped and draped. Following prepping and draping, the distal femur was exposed and using an intramedullary guide, the distal femoral cut was made. The appropriate sized cutting block was measured, pinned into place, and the anterior, posterior, and chamfer cuts were made. The ACL was transected and the tibia was subluxed. Both the medial and lateral menisci were removed. An intramedullary guide was used to make the proximal tibial cut. The appropriate sized base plate was placed and a trial polyethylene was placed. The trial femur was placed, the knee was reduced, and the knee was taken through a range of motion. The knee was stable in anterior, posterior, varus and valgus stress. The patella was measured and it was approximately 25 mm in greatest width. Patellar cut was made and a patellar button was placed. Following placement of that, it was measured again and there was accurate recreation of the patellar width. The patella tracked anatomically without evidence of subluxation or dislocation. After trialing, the trial components were removed and the bony surfaces were thoroughly irrigated with saline. Following irrigation, the surfaces were dried and the final components were cemented into place. The excess cement was removed and the remaining cement was allowed to cure. The knee was again taken through a range of motion to confirm stability. The wound was then irrigated with saline and closure was performed using PDS to approximate the arthrotomy followed by closure of the subcutaneous tissues with a combination of running and interrupted Monocryl sutures. Sterile dressing was placed. The patient was awoken from anesthesia and taken to Recovery. POSTOPERATIVE PLAN: The patient will be weight-bearing as tolerated on postoperative day 1. COMPONENTS: Brooke Triathlon posterior stabilized knee, size 4 femur, size 4 tibia, 9 mm insert, patellar button measuring 31 mm by 9 mm. [facility][id number] [facility]
--- NOTE | 2019-03-22 08:41 | PN ---
DATE: 03/22/19 SUBJECTIVE: Ms. Diaz is doing really well and has not started to have pain yet. OBJECTIVE: Afebrile. Vital signs stable. Dressing is clean, dry and intact. ASSESSMENT: Status post total knee arthroplasty. PLAN: The plan at this point is for her to be weightbearing as tolerated beginning today. #[id number] [facility]
[2019-03-22] MEDS: hydroCHLOROthiazide 25 MG TAB PO SCH (09:09)
--- NOTE | 2019-03-22 09:45 | RAD ---
EXAM DESCRIPTION: Knee,Right 1 or 2 Views CLINICAL HISTORY: 73 years Female, TKA COMPARISON: None. Findings: Location: Right knee Recent right total knee arthroplasty. No evidence of hardware complication. No acute fracture or dislocation. Expected postsurgical appearance of the overlying soft tissues. IMPRESSION: Recent right total knee arthroplasty. No evidence of hardware complication. Electronically signed by: Leif Rodriguez MD 03/22/2019 9:44 AM CDT
[2019-03-22] MEDS: HYDROXYCHLOROQUINE SULFATE 400 MG PO SCH ×2 (09:55→15:59)
[2019-03-22] MEDS: ENOXAPARIN SODIUM 30 MG/0.3 ML SYG SUBCU SCH ×2 (10:56→23:50)
[2019-03-22] MEDS: ALUMINUM & MAGNESIUM HYDROXIDE 30 ML UD PO PRN (11:00)
[2019-03-22] MEDS: HYDROcodone 10MG/APAP 325MG 1 EA TAB PO PRN ×3 (13:45→23:48)
--- NOTE | 2019-03-22 13:47 | PN ---
SUPERVISING PHYSICIAN: Amadou Hart MD DATE: 03/22/19 SUBJECTIVE: The patient is sitting up in bed, much more alert today. She has no complaints of nausea, vomiting, diarrhea, constipation, chest pain or shortness of breath. She said she feels much better today and felt like she had a rough day yesterday. She did not remember me seeing her in her room. OBJECTIVE: VITAL SIGNS: Temperature 97.8. Heart rate 60. Blood pressure 127/71. Respiratory rate 20. O2 saturation 98% on 2 liters nasal cannula. RESPIRATORY: Essentially clear to auscultation bilaterally. CARDIAC: Regular rate and rhythm. GASTROINTESTINAL: Abdomen is soft, nondistended, nontender. Bowel sounds are positive. EXTREMITIES: She has an iceman in place to her right knee. Her bilateral pedal pulses are palpable at +2. NEUROLOGIC: Awake, alert and oriented times three. LABORATORY: Hemoglobin 11.1, hematocrit 32.3. All other labs and films have been reviewed via the EMR. ASSESSMENT: 1. Rheumatoid arthritis affecting her right knee status post right total knee arthroplasty performed by Dr. Darrell Gonzalez, orthopedic surgeon. Postoperative day #1. 2. Hypertension. 3. Rheumatoid arthritis. PLAN: We will continue present supportive care. Orthopedic issues will be per Dr. Darrell Gonzalez, orthopedic surgeon. She will continue with her strengthening and conditioning per Physical Therapy. Plan for discharge is probably on Tuesday. She will have outpatient physical therapy at [facility] Physical Therapy Department. Encourage good pulmonary hygiene. We will continue to monitor the patient closely and follow as needed. #[id number] [facility]
[2019-03-22] MEDS: MORPHINE SULFATE INJ 10 MG/ML VIAL IV PRN (19:30)
[2019-03-22] MEDS: DOCUSATE CALCIUM 240 MG CAP PO SCH (20:30)
[2019-03-23] MEDS: MORPHINE SULFATE INJ 10 MG/ML VIAL IV PRN (00:27)
[2019-03-23] MEDS: MORPHINE PCA 1 MG/ML 100 ML BAG IVPB SCH (00:31)
[2019-03-23] MEDS: CYCLOBENZAPRINE HCL 10 MG TAB PO PRN (00:54)
[2019-03-23] MEDS: HYDROcodone 10MG/APAP 325MG 1 EA TAB PO PRN ×3 (06:01→22:32)
[2019-03-23] MEDS: CELECOXIB 100 MG CAP PO SCH ×2 (07:24→17:23)
[2019-03-23] MEDS: LOSARTAN POTASSIUM 100 MG TAB PO SCH (08:58)
[2019-03-23] MEDS: amLODIPine BESYLATE 5 MG TAB PO SCH (08:58)
[2019-03-23] MEDS: MAGNESIUM OXIDE 400 MG TAB PO SCH (08:58)
[2019-03-23] MEDS: hydroCHLOROthiazide 25 MG TAB PO SCH (08:58)
[2019-03-23] MEDS: SODIUM CHLORIDE 0.9% (FLUSH) 10 ML SYG IV SCH ×2 (09:02→20:23)
[2019-03-23] MEDS: HYDROXYCHLOROQUINE SULFATE 400 MG PO SCH (09:05)
[2019-03-23] MEDS: ENOXAPARIN SODIUM 30 MG/0.3 ML SYG SUBCU SCH ×2 (10:50→23:30)
[2019-03-23] MEDS: DOCUSATE CALCIUM 240 MG CAP PO SCH (20:25)
--- NOTE | 2019-03-23 23:37 | PN ---
DATE: 03/23/19 SUPERVISING PHYSICIAN: Shiva Hart M.D. SUBJECTIVE: The patient is sitting in a chair eating lunch. She did have a rough night apparently with pain control. This morning she is a little sleepy after no rest and then adequate pain control. She has had no other complaints. OBJECTIVE: VITAL SIGNS: Temperature 98, pulse 65, blood pressure 134/77, respirations 16, satting 98% on room air. GENERAL: The patient is resting comfortably. Appears to be in no acute distress. CHEST: Lungs were clear to auscultation. HEART: Regular rate and rhythm. ABDOMEN: Soft, non-tender. Positive bowel sounds. EXTREMITIES: Right knee has an island dressing in place which is clean and dry with no signs of drainage or infection. Distally pulses are strong, capillary refill brisk. NEUROLOGIC: She was alert and oriented times three. LABORATORY: Postoperative H&H was 11.1 and 32.3 on 03/22/19. ASSESSMENT: 1. Rheumatoid arthritis affecting her right knee status post right total knee arthroplasty performed by Dr. Darrell Gonzalez, orthopedic surgeon. Postoperative day #2. 2. Hypertension. 3. Rheumatoid arthritis. PLAN: Will continue to follow the patient as she continues with physical therapy and strengthening. Again hopefully will discharge by Tuesday. The plan at this point is outpatient therapy through [facility]. Will continue to encourage good pulmonary hygiene. Until we can transfer the patient to outpatient management will continue to monitor and treat as needed. #[id number] [facility]
[2019-03-24] MEDS: DEX 5% W/NACL 0.45% 1000ML 1,000 ML IVS PRN (00:30)
[2019-03-24] MEDS: CYCLOBENZAPRINE HCL 10 MG TAB PO PRN ×2 (00:58→20:24)
[2019-03-24] MEDS: HYDROcodone 10MG/APAP 325MG 1 EA TAB PO PRN ×5 (03:13→21:54)
[2019-03-24] MEDS: CELECOXIB 100 MG CAP PO SCH ×2 (08:24→16:40)
[2019-03-24] MEDS: HYDROXYCHLOROQUINE SULFATE 400 MG PO SCH (09:16)
[2019-03-24] MEDS: hydroCHLOROthiazide 25 MG TAB PO SCH (09:17)
[2019-03-24] MEDS: LOSARTAN POTASSIUM 100 MG TAB PO SCH (09:17)
[2019-03-24] MEDS: MAGNESIUM OXIDE 400 MG TAB PO SCH (09:17)
[2019-03-24] MEDS: amLODIPine BESYLATE 5 MG TAB PO SCH (09:17)
[2019-03-24] MEDS: SODIUM CHLORIDE 0.9% (FLUSH) 10 ML SYG IV SCH ×2 (09:17→20:33)
[2019-03-24] MEDS: ENOXAPARIN SODIUM 30 MG/0.3 ML SYG SUBCU SCH ×2 (11:09→23:30)
[2019-03-24] MEDS: IV SET AND CAP CHANGE INJ INJ SCH (11:09)
--- NOTE | 2019-03-24 19:35 | PN ---
DATE: 03/24/19 SUPERVISING PHYSICIAN: Shiva Hart M.D. SUBJECTIVE: The patient is much more awake today. She said her pain is being well controlled and she was able to work with Physical Therapy. She only complains that she has a little bit of difficulty swallowing as if there is a pill stuck in her throat, but she is not having any obvious distress and she is able to eat. OBJECTIVE: VITAL SIGNS: Temperature 98.8, pulse 82, blood pressure 144/69, respirations 18, satting 93% on room air. GENERAL: The patient is resting comfortably. She is alert. Just finished physical therapy. CHEST: Lungs were clear to auscultation. HEART: Regular rate and rhythm. ABDOMEN: Soft, non-tender. Positive bowel sounds. EXTREMITIES: Right knee has a dressing in place which is clean and dry. Distally pulses are strong, capillary refill brisk. NEUROLOGIC: She is alert and oriented times three. LABORATORY: No additional labs. ASSESSMENT: 1. Rheumatoid arthritis affecting her right knee status post right total knee arthroplasty performed by Dr. Darrell Gonzalez, orthopedic surgeon. Postoperative day #3. 2. Hypertension. 3. Rheumatoid arthritis. PLAN: She will continue with the plan of care at this point with physical therapy and rehabilitation efforts. After discussing with her, it sounds like she may be going home tomorrow, but will await further assessment from Physical Therapy and Dr. Gonzalez. The plan is when she discharges is to continue with outpatient management through [facility]. Until then will continue to monitor and treat the patient as needed. #[id number] [facility]
[2019-03-24] MEDS: ALUMINUM & MAGNESIUM HYDROXIDE 30 ML UD PO PRN (20:23)
[2019-03-24] MEDS: DOCUSATE CALCIUM 240 MG CAP PO SCH (20:24)
[2019-03-24] MEDS ORDERED: BISACODYL SUPPOSITORY 10 MG PR ONE (21:00)
[2019-03-24] MEDS ORDERED: MAGNESIUM HYDROXIDE 30 ML UD PO ONE (21:00)
[2019-03-25] MEDS: HYDROcodone 10MG/APAP 325MG 1 EA TAB PO PRN ×3 (01:47→10:30)
[2019-03-25] MEDS: CELECOXIB 100 MG CAP PO SCH (07:12)
[2019-03-25] MEDS: HYDROXYCHLOROQUINE SULFATE 400 MG PO SCH (09:08)
[2019-03-25] MEDS: hydroCHLOROthiazide 25 MG TAB PO SCH (09:09)
[2019-03-25] MEDS: MAGNESIUM OXIDE 400 MG TAB PO SCH (09:09)
[2019-03-25] MEDS: SODIUM CHLORIDE 0.9% (FLUSH) 10 ML SYG IV SCH (09:09)
[2019-03-25] MEDS: LOSARTAN POTASSIUM 100 MG TAB PO SCH (09:09)
[2019-03-25] MEDS: amLODIPine BESYLATE 5 MG TAB PO SCH (09:09)
[2019-03-25 10:23] VITALS: TEMP 98.7
[2019-03-25] MEDS: ENOXAPARIN SODIUM 30 MG/0.3 ML SYG SUBCU SCH (11:39)
[2019-03-25 12:08] VITALS: BP 120/70; O2SAT 95
--- NOTE | 2019-03-25 21:29 | DS ---
SUPERVISING PHYSICIAN: ADMISSION DIAGNOSIS: 1. Rheumatoid arthritis affecting her right knee status post right total knee arthroplasty performed by Dr. Darrell Gonzalez, orthopedic surgeon. Postoperative day #0. 2. Hypertension. 3. Rheumatoid arthritis. DISCHARGE DIAGNOSIS: 1. Rheumatoid arthritis affecting her right knee status post right total knee arthroplasty performed by Dr. Darrell Gonzalez, orthopedic surgeon. Postoperative day #3. 2. Hypertension. 3. Rheumatoid arthritis. REASON FOR HOSPITALIZATION: This is a 73 year-old female patient who has had a long history of severe pain in her knee. Her pain is secondary to rheumatoid arthritis. She had a left total knee arthroplasty performed by Dr. Gonzalez on 04/19/18 and due to her ongoing symptoms and failure of conservative measures, she requested operative intervention. She was admitted to the hospital this morning for her surgical procedure. She had no intraoperative complications and I am seeing the patient postoperatively on the Medical/Surgical floor. It is to be noted that her past medical history is obtained from the EMR due to her lethargy postoperatively as well as she has had some nausea and vomiting, and she has recently had some antiemetics. LABORATORY: Postoperative H&H 11.1 and 32.3. Urine drug screen was negative. RADIOLOGY: No additional radiographic studies. PROCEDURE: Total right knee arthroplasty performed by Dr. Darrell Gonzalez. Please see his operative note. CONSULTATION: Hospitalist Services. Please see [facility] Epstein detailed medical consultation. HOSPITAL COURSE: Ms. Diaz was admitted on 03/21/19 for elective total right knee arthroplasty. She had no intraoperative complications. She had a little drowsiness postoperatively which did resolve. She was able to participate with her physical therapy. She had good pain control. She was tolerating diet. She had no nausea or vomiting. She had progressed well enough and cleared by Physical Therapy and Dr. Gonzalez to continue with outpatient management, therefore she was discharged home. PHYSICAL EXAMINATION ON DISCHARGE: VITAL SIGNS: temperature 98.7, pulse 81, blood pressure 120/70, respirations 18, satting 95% on room air. GENERAL: The patient was showing to be in no acute distress. She was alert. CHEST: Lungs were clear to auscultation. HEART: Regular rate and rhythm. ABDOMEN: Soft, non-tender. Positive bowel sounds. EXTREMITIES: Right knee had an island dressing in place which is clean and dry. Distally pulses were strong with capillary refill brisk. NEUROLOGIC: She was alert and oriented times three. PLAN: Ms. Diaz was discharged on 03/25/[address] Gonzalez as directed. She was to resume physical therapy on Tuesday after discharge through [facility]. Activity is as per Physical Therapy. Utilize a walker for ambulation and increase as tolerated per Physical Therapy. Wound management was through Dr. Gonzalez's postoperative management which was provided. She could shower but no tub bath. Prescriptions provided on discharge were: 1. Flexeril 10 mg every 8 hours as needed #15. No refills. 2. Xarelto 10 mg #7. No refills. Pain management was through Dr. Gonzalez's prescription. All other medications prior to hospitalization were continued which included: 1. Losartan 100 mg daily. 2. Plaquenil 400 mg daily. 3. Hydrochlorothiazide 1 tablet daily. 4. Norvasc 5 mg daily. DISPOSITION: The patient is discharged home. Condition on discharge is stable and improved. #[id number] [facility]
== END 2019-03-25 12:49 | disposition home or self-care (01) | DRG 470 ==
LOC: AMB 05:46 → MS 11:35
PROVIDERS: ADMIT Orthopaedic Surgery; ATTEND Nurse Practitioner Family
PROC: 3E0T3BZ Introduction of Anesthetic Agent into Peripheral Nerves and Plexi, Percutaneous Approach (ICD-10-PCS; 2019-03-21)
PROC: 0SRC0J9 Replacement of Right Knee Joint with Synthetic Substitute, Cemented, Open Approach (ICD-10-PCS; principal; 2019-03-21 07:52)
DX: M06.861 Other specified rheumatoid arthritis, right knee (principal); R11.2 Nausea with vomiting, unspecified; R13.10 Dysphagia, unspecified; I10 Essential (primary) hypertension; Z96.652 Presence of left artificial knee joint; Z88.2 Allergy status to sulfonamides; Z79.1 Long term (current) use of non-steroidal anti-inflammatories (NSAID); Z79.899 Other long term (current) drug therapy; Z88.1 Allergy status to other antibiotic agents; Z88.8 Allergy status to other drugs, medicaments and biological substances; Z87.891 Personal history of nicotine dependence; Z66 Do not resuscitate

== ENCOUNTER → 2019-11-23 | Outpatient (CLI) | payer MEDICARE | LOC: GMAE 10:32 | PROVIDERS: ATTEND Family Medicine | DX: R42 Dizziness and giddiness (principal) ==